=== PATIENT | male | born 1940 | race Caucasian/White ===

== ENCOUNTER → 2020-08-06 | Outpatient (CLI) | payer MEDICARE, OTHER | END | disposition home or self-care (01) | LOC: CFH 09:34 | PROVIDERS: ATTEND Urology | DX: N28.1 Cyst of kidney, acquired (principal); N40.1 Benign prostatic hyperplasia with lower urinary tract symptoms; N32.89 Other specified disorders of bladder; K57.90 Diverticulosis of intestine, part unspecified, without perforation or abscess without bleeding | CPT/HCPCS: 74176 ==

== ENCOUNTER 2021-03-05 08:16 | Outpatient (CLI) | payer MEDICARE, OTHER ==
[2021-03-05 08:43] LABS: BASOPHILS % (AUTO) 1 % (0-1); EOSINOPHILS % (AUTO) 4 % (1-7); LYMPHOCYTES % (AUTO) 29 % (22-44); MEAN CORPUSCULAR HGB CONC 33.9 g/dL (33.2-36.2); MEAN PLATELET VOLUME 7.5 fL (7.4-10.4); MONOCYTES % (AUTO) 13 % (2-9); NEUTROPHILS % (AUTO) 53 % (42-75); PLATELET COUNT 225 x10^3/uL (130-400); RED BLOOD COUNT 4.92 x10^6/uL (4.38-5.82); RED CELL DISTRIBUTION WIDTH 14.5 % (9.4-14.8)
[2021-03-05 08:46] LABS: ALANINE AMINOTRANSFERASE 36 U/L (12-78); ALBUMIN 4.2 g/dL (3.4-5.0); ANION GAP 7 mmol/L (5-15); CALCIUM 9.7 mg/dL (8.5-10.1); CHLORIDE 105 mmol/L (98-107); CHOLESTEROL, TOTAL 207 mg/dL (140-239); CREATININE 0.98 mg/dL (0.7-1.3)
[2021-03-05 08:48] LABS: ALKALINE PHOSPHATASE 15 U/L (45-117); BILIRUBIN,TOTAL 0.8 mg/dL (0.2-1.0); HDL CHOLESTEROL (DIRECT) 125 mg/dL (40-60); TOTAL PROTEIN 7.7 g/dL (6.4-8.2); TRIGLYCERIDES 36 mg/dL (50-200); VLDL CHOLESTEROL 7 mg/dL (0-25)
[2021-03-05 08:49] LABS: CHOL/HDL RATIO 1.7; HDL CHOL % 60 % (26-37); LDL CHOLESTEROL,CALCULATED 75 mg/dL (54-169); LDL/HDL RATIO 0.6 (0.5-3.0)
== END 2021-03-05 23:59 | disposition home or self-care (01) ==
LOC: LAB 08:16
PROVIDERS: ATTEND Internal Medicine
DX: I10 Essential (primary) hypertension (principal); E78.5 Hyperlipidemia, unspecified; K21.9 Gastro-esophageal reflux disease without esophagitis; M10.9 Gout, unspecified
CPT/HCPCS: 36415; 80053; 80061; 84550; 85025